=== PATIENT | female | born 1985 | race Two or more races ===

== ENCOUNTER 2017-04-16 18:17 | Inpatient (IN) | payer OTHER ==
[2017-04-16] VITALS (21 sets, daily range): BP systolic 90–142; BP diastolic 42–77; PULSE 65–115; RESP 18; TEMP 97.6
[2017-04-16] MEDS ORDERED: LACTATED RINGER'S 1000 ML INJ 1,000 ML IV PRN (18:23)
[2017-04-16] MEDS: LACTATED RINGER'S 1000 ML INJ 1,000 ML IV SCH ×3 (18:23→21:45)
[2017-04-16] MEDS ORDERED: OXYTOCIN 30 UNITS-500ML PREMIX 500 ML IV ONE (18:30)
[2017-04-16] MEDS ORDERED: CITRIC ACID-SODIUM CITRATE LIQ 30 ML UDC PO SCH (18:30)
[2017-04-16] MEDS ORDERED: LIDOCAINE HCL 1% 50 ML VIAL INFIL PRN (18:30)
[2017-04-16] MEDS ORDERED: LIDOCAINE HCL 1% 50 ML VIAL I-DERMAL PRN (18:30)
[2017-04-16] MEDS ORDERED: SODIUM CHLORID 0.9% 500 ML INJ 500 ML IV PRN (18:30)
[2017-04-16] MEDS ORDERED: SODIUM CHLOR 0.9% 1000 ML INJ 1,000 ML IV PRN (18:43)
[2017-04-16] MEDS ORDERED: OXYTOCIN 30 UNITS-500ML PREMIX 500 ML IV SCH (18:45)
[2017-04-16] MEDS ORDERED: ePHEDrine/NS 25 MG/5 ML SYR ONE (19:10)
[2017-04-16] MEDS ORDERED: fentaNYL 2MCG-BUPIV 0.125% INJ 100 ML ONE (19:10)
--- NOTE | 2017-04-16 19:11 | MH ---
cc: CHIKA COOLEY DATE OF ADMISSION 04/16/2017 DATE OF 1985 REASON FOR ADMISSION 40-2/7 weeks with silent cervical change to 5-6 cm. HISTORY OF THE PRESENT CONDITION The patient is a very pleasant 31-year-old [place] female 1, para 0 with LMP 07/02/2016 and EDC 04/14/2017, currently at 40-2/7 weeks. Her initial care began at [address] Albarado and I saw her in the last month. She appears to be very short wasted and has a narrow pelvis and the baby was very high and I was unimpressed with her lack of cervical change and descent. However, today she comes in and she is 5-6 cm, 90% and -1. I still worry about cephalic pelvic disproportion but this is very encouraging. She is not feeling any contractions. She has no hypertension, no gestational diabetes. No nausea, vomiting, blurred vision, headache, right upper quadrant tenderness. She has never had any labor. Her only other condition is hypothyroidism and she does take levothyroxine 50 mics daily and she has also been on Zantac 150 b.i.d. for gastroesophageal reflux disease and some iron. Her blood type is O+. Her hemoglobin was 10.7 initially and 10.3 at 28 weeks. She is rubella immune. Varicella nonimmune. Serology was all negative. Her most recent TSH was 1.09. Hep C was negative. Her Glucola was normal at 105. Her Group B strep is negative. FAMILY HISTORY Noncontributory. SOCIAL HISTORY She does not smoke, drink or use illicit drugs. PHYSICAL EXAMINATION GENERAL: On physical she is a short young lady with very short waist who weighs 170 pounds. VITAL SIGNS: Her blood pressure is 114/72. NECK: She has no thyromegaly. LUNGS: Her lungs are clear. CARDIOVASCULAR: Rate and rhythm are regular. ABDOMEN: Her fundal height is 42. Estimated weight is 7-1/2 to 8 pounds. PELVIC: She has a narrow pelvis and it is a difficult exam due to discomfort and anxiety. However it was apparent she was 5-6 cm with a bag of water present and 90% effaced. She was therefore sent to labor and delivery after packing up her things from home. IMPRESSION At this point is term intrauterine with cervical dilatation to 6 cm. No obvious contractions. PLAN The plan is to admit, get epidural, rupture membranes and augment if necessary. She has requested that I delivery her despite the fact that I am not monkey trainer I told her I would do so but I will likely have the laborist break her bag of the water. Chika Cooley MD PPC/DESMOND /6:28 PM /6:48 PM MTDLola
[2017-04-16 19:38] LABS: AUTOMATED NEUTROPHIL # 6.3 TH/MM3 (1.8-7.7); BASOPHIL % 0.2 % (0.0-2.0); EOSINOPHIL # 0.1 TH/MM3 (0-0.4); EOSINOPHIL % 1.3 % (0.0-4.0); HEMATOCRIT 33.9 % (35.0-46.0); HEMO FLAGS DIFF FINAL; LYMPH % 28.4 % (9.0-44.0); LYMPHOCYTE # 2.8 TH/MM3 (1.0-4.8); MEAN CELL VOLUME 87.5 FL (80.0-100.0); MEAN CORPUSCULAR HEMOGLOBIN 29.7 PG (27.0-34.0); MONO % 6.8 % (0.0-8.0); NEUT % 63.3 % (16.0-70.0); PLATELET COUNT 229 TH/MM3 (150-450); RED BLOOD COUNT 3.88 MIL/MM3 (4.00-5.30); RED CELL DISTRIBUTION WIDTH 14.5 % (11.6-17.2)
[2017-04-16 19:54] LABS: BACTERIA, URINE MOD /hpf; BLOOD, URINE LARGE (NEG); COMMENT (UR) CULTURE INDICATED; CULTURE IF INDICATED CULTURE INDICATED; GLUCOSE,URINE NEG (NEG); KETONE, URINE NEG (NEG); NITRITE,URINE NEG (NEG); SQUAMOUS EPITHELIAL CELL URINE 1 /hpf (0-5); URINE COLOR LIGHT-YELLOW (YELLW/STRAW)
[2017-04-16] MEDS ORDERED: ePHEDrine/NS 25 MG/5 ML SYR IV PRN (20:30)
[2017-04-16] MEDS ORDERED: DO NOT ADMINISTER ANTICOAGULANTS PRN (20:30)
[2017-04-16] MEDS ORDERED: NO SYSTEM NARCOTICS PRN (20:30)
[2017-04-16] MEDS: fentaNYL 2MCG-BUPIV 0.125% 100 ML EPIDURAL SCH (20:51)
--- NOTE | 2017-04-16 22:56 | HHI.PR ---
[employer] Note Note I was requested to perform AROM on this patient. Epidural placed and patient is comfortable. Cervix 5/80/-2, AROM with clear fluid obtained approx 2000. Category 1 fhr tracing noted with baseline 140, moderate variability. Rosalinda To MD Apr 16, 2017 22:56
[2017-04-17] VITALS (27 sets, daily range): BP systolic 92–136; BP diastolic 52–82; PULSE 73–93; RESP 14–18; TEMP 97.9–98.9
[2017-04-17] MEDS: fentaNYL 2MCG-BUPIV 0.125% 100 ML EPIDURAL SCH (04:04)
[2017-04-17] MEDS: MINERAL OIL 10 ML VIAL TOPICAL PRN ×2 (04:04→06:44)
--- NOTE | 2017-04-17 06:38 | PD.OB.DELI ---
Weeks gestation: 40 Gest age assessed date: Apr 17, 2017 Gest age assessed time: 06:36 Pt started active labor?: Yes Active labor start date: Apr 16, 2017 Active labor start time: 18:00 Medical induction of labor?: No Artificial rupture of membrane: Yes Artificial ROM date: Apr 16, 2017 Anesthesia: Epidural Episiotomy: None Vaginal Delivery: Normal Presentation: Occiput anterior Nuchal Cord: None Delayed cord clamping (45 sec): Yes : Male Delivery date: Apr 17, 2017 Delivery time: 06:15 One Minute : 9 Five Minute : 9 Placenta: Spontaneous delivery Laceration: 2 deg Repair: Chromic interrupted Estimated blood loss: 250 Additional Information cord and tissue banking performed and kit completed Suzie Samuel MD Apr 17, 2017 06:38
[2017-04-17] MEDS ORDERED: BENZOCAINE 20% TOPICAL SPRAY 60 ML CAN TOPICAL PRN (06:45)
[2017-04-17] MEDS ORDERED: ALUMINUM/MAGNESIUM/SIMETH 30 ML CUP PO PRN (06:45)
[2017-04-17] MEDS ORDERED: ONDANSETRON ODT 4 MG TAB PO PRN (06:45)
[2017-04-17] MEDS ORDERED: SODIUM CHLORIDE 0.9% FLUSH 10 ML FLUSH IV FLUSH PRN (06:45)
[2017-04-17] MEDS ORDERED: OXYTOCIN 30 UNITS-500ML PREMIX 500 ML IV SCH (06:45)
[2017-04-17] MEDS ORDERED: WITCH HAZEL 50%/GLYCERIN 12.5% 40 PAD JAR TOPICAL PRN (06:45)
[2017-04-17] MEDS ORDERED: ZOLPIDEM TARTRATE 5 MG TAB PO PRN (06:45)
[2017-04-17] MEDS ORDERED: DOCUSATE SODIUM 50 MG/SENNA 8.6 MG TAB PO PRN (06:45)
--- NOTE | 2017-04-17 07:03 | HHI.DCPOC ---
Discharge Care Plan Report Symptoms to Your Doctor -Temperature above 100.5 degrees -Redness, of incision or excessive or foul smelling drainage -Unusual pain or calf pain -Increased vaginal bleeding -Painful or difficulty urinating -Feelings of extreme sadness or anxiety after 2 weeks Goals to Promote Your Health * To prevent worsening of your condition and complications * To maintain your health at the optimal level Directions to Meet Your Goals Take your medications as prescribed Follow your dietary instruction Follow activity as directed Ensure plenty of rest for recovery Drink fluids for hydration Keep your appointments as scheduled Take your immunizations and boosters as scheduled If your symptoms worsen call your PCP, if no PCP go to Urgent Care Center or Emergency Room Smoking is Dangerous to Your Health. Avoid second hand smoke Call the 24-hour crisis hotline for domestic abuse at Suzie Samuel MD Apr 17, 2017 07:03
[2017-04-17] MEDS ORDERED: SODIUM CHLORIDE 0.9% FLUSH 10 ML FLUSH IV FLUSH SCH (09:00)
[2017-04-17] MEDS: IBUPROFEN 600 MG TAB PO PRN (15:15)
[2017-04-17] MEDS: ACETAMINOPHEN 325 MG TAB PO PRN (15:17)
[2017-04-17] MEDS ORDERED: DIPHTH/TETANUS/ACEL PERTUSSIS (BOOSTER) 0.5 ML VIAL/PFS IM ONE (16:00)
[2017-04-17] MEDS ORDERED: MEASLES, MUMPS, RUBELLA VACCINE 0.5 ML VIAL SQ ONE (16:00)
[2017-04-18] MEDS: ACETAMINOPHEN 325 MG TAB PO PRN (01:25)
[2017-04-18] MEDS: IBUPROFEN 600 MG TAB PO PRN (01:25)
[2017-04-18] MEDS ORDERED: LEVOTHYROXINE SODIUM 50 MCG TAB PO SCH (06:00)
[2017-04-18 08:00] VITALS: BP 117/71; PULSE 73; RESP 14; TEMP 97.4
--- NOTE | 2017-04-18 11:55 | HHI.OB ---
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 CARDIOVASCULAR: Regular rate and rhythm without murmurs, gallops, or rubs. RESPIRATORY: Breath sounds equal bilaterally. No accessory muscle use. ABDOMEN/GI: Abdomen soft, non-tender. Fundus: Firm, non-tender at umbilicus. GENITOURINARY: Light to moderate bleeding. EXTREMITIES: No cyanosis or edema, non-tender, without signs of DVT. Medications and IVs Current Medications Medications (Trade) Dose Ordered Sig/Maribel Route Start Time Stop Time Status Last Admin Lactated Ringer's 1,000 ml @ 125 mls/hr Q8H IV 04/16/17 18:23 04/16/17 21:45 Lactated Ringer's 1,000 ml @ 3,000 mls/hr Q20M PRN IV 04/16/17 18:23 Sodium Chloride 1,000 ml @ 100 mls/hr Q10H PRN IV 04/16/17 18:43 (Xylocaine 1% Inj (50 ml)) 0.1 ml UNSCH X1 PRN I-DERMAL 04/16/17 18:30 04/19/17 18:29 (Bicitra Liq) 30 ml TOLL RELIEF OPERATOR PO 04/16/17 18:30 04/20/17 18:29 (fentaNYL INJ) 50 mcg Q1H PRN IV PUSH 04/16/17 18:30 (fentaNYL INJ) 100 mcg Q1H PRN IV PUSH 04/16/17 18:30 (Xylocaine 1% Inj (50 ml)) 10 ml UNSCH X1 PRN INFIL 04/16/17 18:30 04/18/17 18:29 04/17/17 06:44 (Muri-Lube Oil) 10 ml UNSCH PRN TOPICAL 04/16/17 18:30 04/17/17 06:44 Oxytocin 500 ml @ 0 mls/hr TITRATE IV 04/16/17 18:45 04/16/17 21:50 Fentanyl/ Bupivacaine HCl 100 ml @ 0 mls/hr TITRATE EPIDURAL 04/16/17 20:30 04/17/17 04:04 (NS Flush) 2 ml BID IV FLUSH 04/17/17 09:00 (NS Flush) 2 ml UNSCH PRN IV FLUSH 04/17/17 06:45 (Tylenol) 650 mg Q4H PRN PO 04/17/17 06:45 04/18/17 01:25 (Motrin) 600 mg Q6H PRN PO 04/17/17 06:45 04/18/17 01:25 (Americaine 20% Top Spr) 1 spray Q4H PRN TOPICAL 04/17/17 06:45 (Tucks Pads) 1 applic QID PRN TOPICAL 04/17/17 06:45 (Carol-Colace) 2 tab Q12H PRN PO 04/17/17 06:45 04/17/17 15:16 (Ambien) 5 mg HS PRN PO 04/17/17 06:45 (Mag-Al Plus Susp Liq) 15 ml Q8H PRN PO 04/17/17 06:45 (Zofran Odt) 4 mg Q6H PRN PO 04/17/17 06:45 (Synthroid) 50 mcg DAILY@0600 PO 04/18/17 06:00 Assessment/Plan Assessment and Plan Home tomorrow consultation today. no circumcision desired. RTO 2 weeks Suzie Samuel MD Apr 18, 2017 11:55
[2017-04-18 19:30] VITALS: BP 112/77; PULSE 80; RESP 18; TEMP 98.6
[2017-04-19 08:00] VITALS: BP 110/73; PULSE 71; RESP 14; TEMP 98.3
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
== END 2017-04-19 17:23 | disposition home or self-care (01) | DRG 775 ==
LOC: H2EB 18:17 → H1EA 04-17 08:39
PROVIDERS: ADMIT Obstetrics & Gynecology; ATTEND Obstetrics & Gynecology
PROC: 10907ZC Drainage of Amniotic Fluid, Therapeutic from Products of Conception, Via Natural or Artificial Opening (ICD-10-PCS; 2017-04-16)
PROC: 00HU33Z Insertion of Infusion Device into Spinal Canal, Percutaneous Approach (ICD-10-PCS; 2017-04-16)
PROC: 3E0R3CZ (ICD-10-PCS; 2017-04-16)
PROC: 10E0XZZ Delivery of Products of Conception, External Approach (ICD-10-PCS; principal; 2017-04-17)
PROC: 0KQM0ZZ Repair Perineum Muscle, Open Approach (ICD-10-PCS; 2017-04-17)
DX: O99.284 Endocrine, nutritional and metabolic diseases complicating childbirth (principal); E03.9 Hypothyroidism, unspecified; O99.62 Diseases of the digestive system complicating childbirth; K21.9 Gastro-esophageal reflux disease without esophagitis; O70.1 Second degree perineal laceration during delivery; Z3A.40 40 weeks gestation of pregnancy; Z37.0 Single live birth
CPT/HCPCS: 59025; 81001; 85025; 86900; 86901; 87086; 90715; J2590; J7120